=== PATIENT | male | born 1960 | race Caucasian/White ===

== ENCOUNTER → 2021-11-16 09:46 | Outpatient (BNVA) | payer OTHER, SELFPAY | PROVIDERS: PCP Family Medicine; Visit Provider Nurse Practitioner Family | DX: G45.9 Transient cerebral ischemic attack, unspecified (principal); J44.9 Chronic obstructive pulmonary disease, unspecified; R06.00 Dyspnea, unspecified | CPT/HCPCS: 71046; 80053; 80061; 83880; 84443; G0103 ==

== ENCOUNTER 2021-12-26 03:39 | Emergency (ER) | payer OTHER, SELFPAY ==
[2021-12-26] VITALS (17 sets, daily range): BP systolic 103–128; BP diastolic 48–85; PULSE 68–89; RESP 16–24; TEMP 36.9; O2SAT 92–96; BMI 38.4
--- NOTE | 2021-12-26 03:53 | ECG_ITS ---
[facility] Test Date: 2021-12-26 Pat Name: Patrick Branch Department: Room: Gender: Male Para Educator: : 1960 Requested By: Berto Manriquez Order Number: [id number] Gaurav MD: Margie Guallpa M.D. Measurements Intervals [place] Rate: 71 P: 74 AR: 186 QRS: 34 QRSD: 113 T: 48 QT: 410 QTc: 447 Interpretive Statements SINUS RHYTHM LOW QRS VOLTAGE IN PRECORDIAL LEADS [QRS DEFLECTION < 1.0 mV IN CHEST LEADS] MODERATE INTRAVENTRICULAR CONDUCTION DELAY [110+ ms QRS DURATION] No previous ECG available for comparison Electronically Signed On 12-26-2021 6:37:29 CDT by Margie Guallpa M.D. [id number]
--- NOTE | 2021-12-26 03:56 | CTR_ITS ---
PROCEDURE INFORMATION: Exam: CT Abdomen And Pelvis Without Contrast Exam date and time: 12/26/2021 4:14 AM Age: 61 years old Clinical indication: Abdominal pain; Generalized; Patient HX: C/O of diffuse abd pain. Visibly jaundiced. History of cirrhosis. TECHNIQUE: Imaging protocol: Computed tomography of the abdomen and pelvis without contrast. Radiation optimization: All CT scans at this facility use at least one of these dose optimization techniques: automated exposure control; mA and/or kV adjustment per patient size (includes targeted exams where dose is matched to clinical indication); or iterative reconstruction. COMPARISON: CR (CHEST, ) 12/26/2021 4:01 AM RADIATION DOSE METRICS: Total DLP (mGy-cm): 1149.63 FINDINGS: Tubes, catheters and devices: Left upper quadrant splenorenal shunt. Liver: Cirrhotic morphology of the liver. Gallbladder and bile ducts: Moderate distention of the gallbladder. No radiopaque stones are seen. No biliary dilation. Pancreas: Normal. No ductal dilation. Spleen: Normal. No splenomegaly. Adrenal glands: Normal. No mass. Kidneys and ureters: Normal. No hydronephrosis. Stomach and bowel: Unremarkable. No obstruction. No mucosal thickening. Appendix: No evidence of appendicitis. Intraperitoneal space: Small volume abdominopelvic ascites. Vasculature: Esophageal varices. Mild burden of atherosclerotic plaque in the abdominal aorta and branch vessels. No aneurysm. Lymph nodes: Unremarkable. No enlarged lymph nodes. Urinary bladder: Unremarkable as visualized. Reproductive: Unremarkable as visualized. Bones/joints: Remote right-sided rib fractures. Soft tissues: Anasarca. CT/CT abdomen pelvis [facility] [id number] IMPRESSION: Cirrhotic morphology of the liver with evidence of portal hypertension.
--- NOTE | 2021-12-26 03:56 | XRR_ITS ---
PROCEDURE INFORMATION: Exam: XR Chest Exam date and time: 12/26/2021 4:01 AM Age: 61 years old Clinical indication: Shortness of breath; Patient HX: C/O SOB with generalized weakness. History of copd. TECHNIQUE: Imaging protocol: Radiologic exam of the chest. Views: 1 view. COMPARISON: CR XR chest 2V* [id number] 11/16/2021 9:52 AM FINDINGS: Lungs: No focal airspace disease. Pleural spaces: Unremarkable. No pleural effusion. No pneumothorax. Heart/Mediastinum: Cardiomediastinal silhouette is within normal limits. Bones/joints: Unremarkable. XR/XR chest 1V portable [id number] IMPRESSION: No acute cardiopulmonary abnormality.
--- NOTE | 2021-12-26 04:12 | ED_ITS ---
Documented by User: Berto Manriquez MD 12/26/21 18:58 HPI - General Adult General: Chief complaint: General Medical Stated complaint: GEN WEAKNESS Time Seen by Provider: 12/26/21 03:43 Source: patient Mode of arrival: ambulatory Limitations: no limitations History of Present Illness: 61-year-old male who has a history of alcoholism along with cirrhosis. He states he has not really seen anyone in the last 10 months since he moved here from [place]. He states that has been having increasing swelling to his legs and shortness of breath and weakness. He states that over the last few days that he is not able to walk patient's pulse ox by EMS was 82% on room air he is requiring 2 L here patient is extremely jaundiced here he does have some slight back and abdominal pain as well. Associated symptoms: Reports dyspnea; Deny chest pain, headache(s), nausea, rash or vomiting Review of Systems Const: Denies: fever(s), chills, body aches or change in appetite Eyes: Reports: yellow eyes; Denies: blurry vision or eye discomfort ENMT: Denies: throat pain or dental pain Card: Denies: chest pain Resp: Reports: dyspnea GI: Reports: abdominal pain; Denies: nausea, vomiting or diarrhea : Denies: dysuria Musc: Reports: extremity swelling; Denies: neck pain or back pain Skin/Breast: Denies: rash Neuro: Denies: headache(s) Psych: Denies: depression Shen/Lymph: Denies: easy bruising All/Imm: Denies: urticaria PFSH ED PFSH: Medical History (Updated 01/03/22 @ 00:01 by ) Alcohol use Chronic back pain Cirrhosis COPD (chronic obstructive pulmonary disease) Hyperlipemia Hypertension Peripheral neuropathy Tobacco dependency Surgical History (Updated 12/26/21 @ 11:45 by Giuseppe Jackson MD) History of lung surgery Probable pleural effusion with decortication Family History (Updated 12/26/21 @ 11:45 by Giuseppe Jackson MD) Other CAD (coronary artery disease) Stroke Social History (Updated 12/26/21 @ 11:45 by Giuseppe Jackson MD) Smoking and tobacco status: current every day smoker Alcohol intake: current Physical Exam Const: COMMON NORMALS: patient oriented x3 GENERAL APPEARANCE: ill appearing HENMT: COMMON NORMALS: normocephalic and atraumatic HEAD & SCALP: normocephalic and atraumatic Eye: COMMON NORMALS: Equal, round and reactive pupils present and EOMs intact bilaterally SCLERA: scleral abnormal (icterus) PUPIL: Yes Equal, round and reactive pupils present Neck/C-Spine: COMMON NORMALS: full ROM and supple Chest: COMMONS NORMALS: normal inspection of the chest and normal palpation of entire chest wall Resp: COMMON NORMALS: No retractions and No use of accessory muscles AUSCULTATION: rales Cardio: COMMON NORMALS: regular rate, regular rhythm and No murmurs present (Cardio) RATE: regular rate RHYTHM: regular rhythm GI: COMMON NORMALS: Normal to inspection, nondistended, normoactive bowel sounds present, Soft to palpation, non-tender and no masses PALPATION: Yes Soft to palpation Extremity: COMMON NORMALS: full ROM NARRATIVE EXTREMITY EXAM: 2+ edema Neuro: COMMON NORMALS: patient oriented x3, moves all extremities and no focal motor deficits Psych: COMMON NORMALS: mental status grossly normal, Normal thought process present and cooperative THOUGHT PROCESS: Normal thought process present Skin: COMMON NORMALS: no wounds NARRATIVE SKIN EXAM: severely jaundiced Course Vital Signs: Vital signs: Vital Signs Temperature 98.5 F 12/26/21 03:50 Pulse Rate 72 12/26/21 15:04 Respiratory Rate 21 H 12/26/21 15:04 Blood Pressure 114/65 12/26/21 15:30 Pulse Oximetry 93 12/26/21 15:04 Oxygen Delivery Me thod 12/26/21 15:04 Oxygen Flow Rate 2 12/26/21 15:04 [facility] - General Adult Lab Data : 12/26/21 03:58 12/26/21 11:42 Radiology Impressions Abdomen/Pelvis CT 12/26/21 03:56 IMPRESSION: Cirrhotic morphology of the liver with evidence of portal hypertension. Chest X-Ray 12/26/21 03:56 IMPRESSION: No acute cardiopulmonary abnormality. Laboratory Results WBC 11.4 10^3/uL (4.0-10.0) H 12/26/21 03:58 RBC 2.75 10^6/uL (4.1-5.3) L 12/26/21 03:58 Hgb 11.5 g/dL (11.7-16.6) L 12/26/21 03:58 Hct 29.0 % (42.0-52.0) L 12/26/21 03:58 MCV 105.5 fl (80-94) H 12/26/21 03:58 MCH 41.8 pg (28.0-34.0) H 12/26/21 03:58 MCHC 39.7 g/dL (30.0-36.0) H 12/26/21 03:58 RDW 16.7 % (12.1-15.1) H 12/26/21 03:58 Plt Count 160 10^3/cmm (130-400) 12/26/21 03:58 MPV 9.6 fL (7.4-10.4) 12/26/21 03:58 Neut % (Auto) 83.6 % 12/26/21 03:58 Lymph % (Auto) 3.6 % 12/26/21 03:58 [place] % (Auto) 10.0 % 12/26/21 03:58 Eos % (Auto) 1.1 % 12/26/21 03:58 Baso % (Auto) 0.4 % 12/26/21 03:58 Neut # (Auto) 9.51 10^3/uL (1.8-7.7) H 12/26/21 03:58 Lymph # (Auto) 0.4 10^3/uL (0.8-4.8) L 12/26/21 03:58 [place] # (Auto) 1.1 10^3/uL (0.2-0.9) H 12/26/21 03:58 Eos # (Auto) 0.1 10^3/uL (0.0-0.8) 12/26/21 03:58 Baso # (Auto) 0.1 10^3/uL (0.0-0.1) 12/26/21 03:58 Nucleated RBC % (auto) 0.2 % 12/26/21 03:58 Nucleated RBCs # 0.0 /100WBC 12/26/21 03:58 PT 20.10 SECONDS (12.1-14.9) H 12/26/21 03:58 INR 1.68 (0.8-1.2) H 12/26/21 03:58 Sodium 107 mmol/L (136-145) L* 12/26/21 11:42 Potassium 4.1 mmol/L (3.5-5.1) 12/26/21 11:42 Chloride 72 mmol/L (98-107) L 12/26/21 11:42 Carbon Dioxide 27 mmol/L (22-29) 12/26/21 11:42 Anion Gap 12.1 (5-19) 12/26/21 11:42 BUN 26 mg/dL (8-23) H 12/26/21 11:42 Creatinine 0.4 mg/dL (0.7-1.2) L 12/26/21 11:42 GFR Calculation 218.0 mL/min (90-130) H 12/26/21 11:42 Glucose 91 mg/dL (65-115) 12/26/21 11:42 POC Glucose 93 mg/dL (70-110) 12/26/21 13:44 Calculated Osmolality 228 mOsm/kg (285-295) L 12/26/21 11:42 Lactate 3.1 mmol/L (0.5-2.2) H 12/26/21 03:58 Calcium 8.9 mg/dL (8.5-10.5) 12/26/21 11:42 Magnesium 1.3 mg/dL (1.7-2.3) L 12/26/21 03:58 Total Bilirubin 28.2 mg/dL (0.15-1.2) H* 12/26/21 03:58 AST 145 U/L (0-40) H 12/26/21 03:58 ALT 58 U/L (0-41) H 12/26/21 03:58 Alkaline Phosphatase 114 IU/L (40-130) 12/26/21 03:58 Ammonia 47 umol/L (16-60) 12/26/21 12:14 Troponin T Baseline 18 ng/L (0-15) H 12/26/21 03:58 Troponin T 120 Minute 18.76 ng/L (0-15) H 12/26/21 05:57 Delta Troponin T 0.76 ABS# (0-10) 12/26/21 05:57 NT-Pro-B Natriuret Pep 711 pg/mL (0-125) H 12/26/21 03:58 Total Protein 5.1 g/dL (6.6-8.7) L 12/26/21 03:58 Albumin 2.5 g/dL (3.5-5.2) L 12/26/21 03:58 Globulin 2.6 g/dL (1.3-4.6) 12/26/21 03:58 Lipase 67 U/L (13-60) H 12/26/21 03:58 Vitamin B12 > 2000 pg/mL (232-1245) H 12/26/21 11:42 Folate 2.7 ng/mL (4.5-32.2) L 12/26/21 11:42 TSH 0.86 uIU/mL (0.27-4.20) 12/26/21 11:42 Urine Color Brown (Yellow) 12/26/21 15:04 Urine Appearance Clear (CLEAR) 12/26/21 15:04 Urine pH 6 (5-7) 12/26/21 15:04 Ur Specific [place] 1.020 (1.005-1.030) 12/26/21 15:04 Urine Protein Neg (Negative) 12/26/21 15:04 Urine Glucose (UA) Norm (Normal) 12/26/21 15:04 Urine Ketones Negative (Negative) 12/26/21 15:04 Urine Blood Trace (Negative) H 12/26/21 15:04 Urine Nitrate Negative (Negative) 12/26/21 15:04 Urine Bilirubin 3+ (Negative) H 12/26/21 15:04 Urine Urobilinogen 4+ mg/dL (Negative) H 12/26/21 15:04 Ur Leukocyte Esterase Negative (Negative) 12/26/21 15:04 Urine RBC 0-4 /hpf (0-2) H 12/26/21 15:04 Urine WBC 5-10 /hpf (0-5) H 12/26/21 15:04 Ur Squamous Epith Cells 0-4 /hpf (0-5) H 12/26/21 15:04 Amorphous Sediment Not Reportable 12/26/21 15:04 Urine Bacteria 2+ /hpf (NONE) H 12/26/21 15:04 Salicylates < 0.3 mg/dL (3-10) L 12/26/21 03:58 Urine Opiates Screen Negative ng/mL (Negative) 12/26/21 15:04 Acetaminophen < 5.0 ug/mL (10-30) L 12/26/21 03:58 Ur Barbiturates Screen Negative ng/mL (Negative) 12/26/21 15:04 Ur Phencyclidine Scrn Negative ng/mL (Negative) 12/26/21 15:04 Ur Amphetamines Screen Negative ng/mL (Negative) 12/26/21 15:04 U Benzodiazepines Scrn Negative ng/mL (Negative) 12/26/21 15:04 Urine Cocaine Screen Negative ng/mL (Negative) 12/26/21 15:04 U Marijuana (THC) Screen Negative ng/mL (Negative) 12/26/21 15:04 Ethyl Alcohol < 10 mg/dL (0-10) 12/26/21 03:58 Hepatitis A IgM Ab Non-reactive (Nonreactive) 12/26/21 11:42 Hep Bs Antigen Non-reactive (Nonreactive) 12/26/21 11:42 Hep B Core IgM Ab Non-reactive (Nonreactive) 12/26/21 11:42 Hepatitis C Antibody Reactive (Nonreactive) H 12/26/21 11:42 HCV RNA (PCR) IUs/ml <1.18 not detected Log IU/mL (NOT DETECTED) 12/26/21 12:34 HCV RNA (PCR) IU log10 <15 not detected IU/mL (NOT DETECTED) 12/26/21 12:34 SARS-CoV-2 Ag (Rapid) Negative (Negative) 12/26/21 04:58 EKG Data EKG 1: I personally reviewed and interpreted this EKG as follows: EKG interpretation date: 12/26/21 EKG interpretation time: 03:53 Interpretation: nsr hr [address] or t wave abnormalities qrs 113 qtc 432 Computer generated interpretation: Abdomen/Pelvis CT 12/26/21 03:56 IMPRESSION: Cirrhotic morphology of the liver with evidence of portal hypertension. Chest X-Ray 12/26/21 03:56 IMPRESSION: No acute cardiopulmonary abnormality. Critical Care Time Critical Care Time: Critical Care Time: Yes Total Critical Care Time: 70 Attestation: The high probability of a clinically significant, sudden or life threatening deterioration of the patient's gi/hepatologic system(s) required my full and direct attention, intervention and personal management. The critical care time is as shown. This time is in addition to time spent performing any reported procedures but includes the following: [x] Data and vital sign review and interpretation [x] Patient assessment, examination and intervention [x] Documentation [x] Medication orders and management Discharge Plan Discharge Patient Disposition: Xfer Short-Term Hosp Clinical Impression: Alcoholic liver failure, Acute hyponatremia Condition: Stable Referrals: Heydi Smith MD [Primary Care Provider] - Sign Out Sign Out Data: Patient Sign Out occurred on 12/26/21 at 06:01. Patient's care was discussed, and care was transferred from to Ok Richardson MD. Coding Level of Care Code ED Physical Therapist Technician for Chg Fwd Exam Comprehensive Documented by User: Ok Richardson MD 01/07/22 22:47 HPI - General Adult General: Chief complaint: General Medical Stated complaint: GEN WEAKNESS Time Seen by Provider: 12/26/21 03:43 PFSH ED PFSH: Medical History (Updated 01/03/22 @ 00:01 by ) Alcohol use Chronic back pain Cirrhosis COPD (chronic obstructive pulmonary disease) Hyperlipemia Hypertension Peripheral neuropathy Tobacco dependency Surgical History (Updated 12/26/21 @ 11:45 by Giuseppe Jackson MD) History of lung surgery Probable pleural effusion with decortication Family History (Updated 12/26/21 @ 11:45 by Giuseppe Jackson MD) Other CAD (coronary artery disease) Stroke Social History (Updated 12/26/21 @ 11:45 by Giuseppe Jackson MD) Smoking and tobacco status: current every day smoker Alcohol intake: current Course Vital Signs: Vital signs: Vital Signs Temperature 98.5 F 12/26/21 03:50 Pulse Rate 72 12/26/21 15:04 Respiratory Rate 21 H 12/26/21 15:04 Blood Pressure 114/65 12/26/21 15:30 Pulse Oximetry 93 12/26/21 15:04 Oxygen Delivery Me thod 12/26/21 15:04 Oxygen Flow Rate 2 12/26/21 15:04 MDM - General Adult Medical Decision Making Patient care handoff received from Dr. Manriquez pending completion of ED evaluation and transfer. Laboratory studies reviewed. Imaging reviewed. No acute pathology requiring surgical intervention identified on CT abdomen pelvis. Patient requires hepatology specialist which is not available at our facility or at [facility] which is also not available. Very limited bed availability in that region. Patient tentatively accepted to [facility] in [place] by Dr. Du however subsequently received a call back saying they would not take him until sodium above 120. Hospitalist service consulted. Appreciate recommendations. Ok Richardson MD Emergency Medicine Lab Data : 12/26/21 03:58 12/26/21 11:42 Radiology Impressions Abdomen/Pelvis CT 12/26/21 03:56 IMPRESSION: Cirrhotic morphology of the liver with evidence of portal hypertension. Chest X-Ray 12/26/21 03:56 IMPRESSION: No acute cardiopulmonary abnormality. Laboratory Results WBC 11.4 10^3/uL (4.0-10.0) H 12/26/21 03:58 RBC 2.75 10^6/uL (4.1-5.3) L 12/26/21 03:58 Hgb 11.5 g/dL (11.7-16.6) L 12/26/21 03:58 Hct 29.0 % (42.0-52.0) L 12/26/21 03:58 MCV 105.5 fl (80-94) H 12/26/21 03:58 MCH 41.8 pg (28.0-34.0) H 12/26/21 03:58 MCHC 39.7 g/dL (30.0-36.0) H 12/26/21 03:58 RDW 16.7 % (12.1-15.1) H 12/26/21 03:58 Plt Count 160 10^3/cmm (130-400) 12/26/21 03:58 MPV 9.6 fL (7.4-10.4) 12/26/21 03:58 Neut % (Auto) 83.6 % 12/26/21 03:58 Lymph % (Auto) 3.6 % 12/26/21 03:58 [place] % (Auto) 10.0 % 12/26/21 03:58 Eos % (Auto) 1.1 % 12/26/21 03:58 Baso % (Auto) 0.4 % 12/26/21 03:58 Neut # (Auto) 9.51 10^3/uL (1.8-7.7) H 12/26/21 03:58 Lymph # (Auto) 0.4 10^3/uL (0.8-4.8) L 12/26/21 03:58 [place] # (Auto) 1.1 10^3/uL (0.2-0.9) H 12/26/21 03:58 Eos # (Auto) 0.1 10^3/uL (0.0-0.8) 12/26/21 03:58 Baso # (Auto) 0.1 10^3/uL (0.0-0.1) 12/26/21 03:58 Nucleated RBC % (auto) 0.2 % 12/26/21 03:58 Nucleated RBCs # 0.0 /100WBC 12/26/21 03:58 PT 20.10 SECONDS (12.1-14.9) H 12/26/21 03:58 INR 1.68 (0.8-1.2) H 12/26/21 03:58 Sodium 107 mmol/L (136-145) L* 12/26/21 11:42 Potassium 4.1 mmol/L (3.5-5.1) 12/26/21 11:42 Chloride 72 mmol/L (98-107) L 12/26/21 11:42 Carbon Dioxide 27 mmol/L (22-29) 12/26/21 11:42 Anion Gap 12.1 (5-19) 12/26/21 11:42 BUN 26 mg/dL (8-23) H 12/26/21 11:42 Creatinine 0.4 mg/dL (0.7-1.2) L 12/26/21 11:42 GFR Calculation 218.0 mL/min (90-130) H 12/26/21 11:42 Glucose 91 mg/dL (65-115) 12/26/21 11:42 POC Glucose 93 mg/dL (70-110) 12/26/21 13:44 Calculated Osmolality 228 mOsm/kg (285-295) L 12/26/21 11:42 Lactate 3.1 mmol/L (0.5-2.2) H 12/26/21 03:58 Calcium 8.9 mg/dL (8.5-10.5) 12/26/21 11:42 Magnesium 1.3 mg/dL (1.7-2.3) L 12/26/21 03:58 Total Bilirubin 28.2 mg/dL (0.15-1.2) H* 12/26/21 03:58 AST 145 U/L (0-40) H 12/26/21 03:58 ALT 58 U/L (0-41) H 12/26/21 03:58 Alkaline Phosphatase 114 IU/L (40-130) 12/26/21 03:58 Ammonia 47 umol/L (16-60) 12/26/21 12:14 Troponin T Baseline 18 ng/L (0-15) H 12/26/21 03:58 Troponin T 120 Minute 18.76 ng/L (0-15) H 12/26/21 05:57 Delta Troponin T 0.76 ABS# (0-10) 12/26/21 05:57 NT-Pro-B Natriuret Pep 711 pg/mL (0-125) H 12/26/21 03:58 Total Protein 5.1 g/dL (6.6-8.7) L 12/26/21 03:58 Albumin 2.5 g/dL (3.5-5.2) L 12/26/21 03:58 Globulin 2.6 g/dL (1.3-4.6) 12/26/21 03:58 Lipase 67 U/L (13-60) H 12/26/21 03:58 Vitamin B12 > 2000 pg/mL (232-1245) H 12/26/21 11:42 Folate 2.7 ng/mL (4.5-32.2) L 12/26/21 11:42 TSH 0.86 uIU/mL (0.27-4.20) 12/26/21 11:42 Urine Color Brown (Yellow) 12/26/21 15:04 Urine Appearance Clear (CLEAR) 12/26/21 15:04 Urine pH 6 (5-7) 12/26/21 15:04 Ur Specific [place] 1.020 (1.005-1.030) 12/26/21 15:04 Urine Protein Neg (Negative) 12/26/21 15:04 Urine Glucose (UA) Norm (Normal) 12/26/21 15:04 Urine Ketones Negative (Negative) 12/26/21 15:04 Urine Blood Trace (Negative) H 12/26/21 15:04 Urine Nitrate Negative (Negative) 12/26/21 15:04 Urine Bilirubin 3+ (Negative) H 12/26/21 15:04 Urine Urobilinogen 4+ mg/dL (Negative) H 12/26/21 15:04 Ur Leukocyte Esterase Negative (Negative) 12/26/21 15:04 Urine RBC 0-4 /hpf (0-2) H 12/26/21 15:04 Urine WBC 5-10 /hpf (0-5) H 12/26/21 15:04 Ur Squamous Epith Cells 0-4 /hpf (0-5) H 12/26/21 15:04 Amorphous Sediment Not Reportable 12/26/21 15:04 Urine Bacteria 2+ /hpf (NONE) H 12/26/21 15:04 Salicylates < 0.3 mg/dL (3-10) L 12/26/21 03:58 Urine Opiates Screen Negative ng/mL (Negative) 12/26/21 15:04 Acetaminophen < 5.0 ug/mL (10-30) L 12/26/21 03:58 Ur Barbiturates Screen Negative ng/mL (Negative) 12/26/21 15:04 Ur Phencyclidine Scrn Negative ng/mL (Negative) 12/26/21 15:04 Ur Amphetamines Screen Negative ng/mL (Negative) 12/26/21 15:04 U Benzodiazepines Scrn Negative ng/mL (Negative) 12/26/21 15:04 Urine Cocaine Screen Negative ng/mL (Negative) 12/26/21 15:04 U Marijuana (THC) Screen Negative ng/mL (Negative) 12/26/21 15:04 Ethyl Alcohol < 10 mg/dL (0-10) 12/26/21 03:58 Hepatitis A IgM Ab Non-reactive (Nonreactive) 12/26/21 11:42 Hep Bs Antigen Non-reactive (Nonreactive) 12/26/21 11:42 Hep B Core IgM Ab Non-reactive (Nonreactive) 12/26/21 11:42 Hepatitis C Antibody Reactive (Nonreactive) H 12/26/21 11:42 HCV RNA (PCR) IUs/ml <1.18 not detected Log IU/mL (NOT DETECTED) 12/26/21 12:34 HCV RNA (PCR) IU log10 <15 not detected IU/mL (NOT DETECTED) 12/26/21 12:34 SARS-CoV-2 Ag (Rapid) Negative (Negative) 12/26/21 04:58 EKG Data EKG 1: Computer generated interpretation: Abdomen/Pelvis CT 12/26/21 03:56 IMPRESSION: Cirrhotic morphology of the liver with evidence of portal hypertension. Chest X-Ray 12/26/21 03:56 IMPRESSION: No acute cardiopulmonary abnormality. Discharge Plan Discharge Patient Disposition: Xfer Short-Term Hosp Clinical Impression: Alcoholic liver failure, Acute hyponatremia Condition: Stable Referrals: Heydi Smith MD [Primary Care Provider] - Sign Out Sign Out Data: Patient Sign Out occurred on 12/26/21 at 06:01. Patient's care was discussed, and care was transferred from to Ok Richardson MD. Coding Level of Care Code ED Physical Therapist Technician for Chg Fwd Exam Comprehensive
[2021-12-26 04:30] LABS: INR 1.68 (0.8-1.2)
[2021-12-26 04:36] LABS: Troponin(5th) Baseline 18 ng/L (0-15)
[2021-12-26 04:39] LABS: Lactate (Lactic Acid level) 3.1 mmol/L (0.5-2.2)
[2021-12-26 04:50] LABS: Alanine Aminotransferase 58 U/L (0-41); Albumin Level 2.5 g/dL (3.5-5.2); Alkaline Phosphatase 114 IU/L (40-130); Anion Gap 16.5 (5-19); Aspartate Amino Transferase 145 U/L (0-40); Blood Urea Nitrogen 21 mg/dL (8-23); Calcium 8.9 mg/dL (8.5-10.5); Carbon Dioxide 25 mmol/L (22-29); Chloride 71 mmol/L (98-107); Globulin 2.6 g/dL (1.3-4.6); Glomerular Filtration Rate 136.5 mL/min (90-130); Glucose 83 mg/dL (65-115); Lipase 67 U/L (13-60); Magnesium 1.3 mg/dL (1.7-2.3); NT Pro B Type Natriuretic Pept 711 pg/mL (0-125); Osmolality Calculated 228 mOsm/kg (285-295); Potassium 4.5 mmol/L (3.5-5.1); Total Protein 5.1 g/dL (6.6-8.7)
[2021-12-26 04:54] LABS: Alcohol Level < 10 mg/dL (0-10)
[2021-12-26 04:55] LABS: Sodium 108 mmol/L (136-145); Total Bilirubin 28.2 mg/dL (0.15-1.2)
[2021-12-26 05:31] LABS: SARS Covid-2 Antigen Negative (Negative)
[2021-12-26 05:35] LABS: Basophils # 0.1 10^3/uL (0.0-0.1); Basophils % 0.4 %; Eosinophils # 0.1 10^3/uL (0.0-0.8); Eosinophils % 1.1 %; Hemoglobin 11.5 g/dL (11.7-16.6); Lymphocytes # 0.4 10^3/uL (0.8-4.8); Lymphocytes % 3.6 %; Mean Corpuscular HGB Conc 39.7 g/dL (30.0-36.0); Mean Corpuscular Hemoglobin 41.8 pg (28.0-34.0); Mean Corpuscular Volume 105.5 fl (80-94); Mean Platelet Volume 9.6 fL (7.4-10.4); Monocytes # 1.1 10^3/uL (0.2-0.9); Neutrophils # 9.51 10^3/uL (1.8-7.7); Neutrophils % 83.6 %; Nucleated Red Blood Cells % 0.2 %; Platelet Count 160 10^3/cmm (130-400); Red Blood Count 2.75 10^6/uL (4.1-5.3); Red Cell Distribution Width 16.7 % (12.1-15.1); White Blood Count 11.4 10^3/uL (4.0-10.0)
[2021-12-26 05:43] LABS: Slide Review Slide Review Perform
--- NOTE | 2021-12-26 06:01 | ECG_ITS ---
[facility] Test Date: 2021-12-26 Pat Name: Patrick Branch Department: Room: Gender: Male Table Filler: : 1960 Requested By: Berto Manriquez Order Number: [id number] Gaurav MD: Rebecca Madsen M.D. Measurements Intervals [place] Rate: 73 P: 69 MA: 202 QRS: 38 QRSD: 114 T: 46 QT: 410 QTc: 454 Interpretive Statements SINUS RHYTHM POSSIBLE LEFT ATRIAL ENLARGEMENT [-0.1mV P WAVE IN V1/V2] MODERATE INTRAVENTRICULAR CONDUCTION DELAY [110+ ms QRS DURATION] Compared to ECG 12/26/2021 03:53:59 No significant changes Electronically Signed On 12-26-2021 19:49:10 CDT by Rebecca Madsen M.D. [id number]
[2021-12-26] MEDS: magnesium sulfate premix 2 GM/50 ML PIGGYBACK IV (06:25)
[2021-12-26 06:51] LABS: Troponin 5 2HR 18.76 ng/L (0-15)
[2021-12-26] MEDS: sodium chloride 0.9% 500 ML 999 ML IV (06:55)
[2021-12-26 07:00] LABS: Troponin 5 2HR Delta 0.76 ABS# (0-10)
--- NOTE | 2021-12-26 08:30 | PC.NURSE ---
This RN assisted patient to chair at bedside. Pt ambulatory with standby assistance
--- NOTE | 2021-12-26 09:17 | PC.NURSE ---
This RN moved patient into a hospital bed for comfort and given water, no other needs at this time.
--- NOTE | 2021-12-26 09:56 | ECG_ITS ---
[facility] Test Date: 2021-12-26 Pat Name: Patrick Branch Department: Room: Gender: Male Cable Coverer: : 1960 Requested By: Berto Manriquez Order Number: [id number] Gaurav MD: Rebecca Madsen M.D. Measurements Intervals [place] Rate: 67 P: 52 [place]: 162 QRS: 18 QRSD: 116 T: 30 QT: 430 QTc: 457 Interpretive Statements SINUS RHYTHM POSSIBLE LEFT ATRIAL ENLARGEMENT [-0.1mV P-WAVE IN V1/V2] MODERATE INTRAVENTRICULAR CONDUCTION DELAY [110+ ms QRS DURATION] Compared to ECG 12/26/2021 06:01:42 No significant changes Electronically Signed On 12-26-2021 19:48:30 CDT by Rebecca Madsen M.D. [id number]
--- NOTE | 2021-12-26 11:41 | PM.CONSULT ---
Providers/Reason For Consult Consulting Physician/Specialty*: Giuseppe Jackson MD, Hospitalist Reason for Consult*: Cirrhosis, hyponatremia Requesting Physician: Dr. Richardson Primary Care Provider: Heydi Smith MD History of Present Illness History of Present Illness Patrick Branch is a 61 year old male who presents to the emergency department with complaints of weakness. He reports significant swelling over the last 5 weeks as well, increasing despite oral medications. He reports nobody is really noticed his jaundice, until he came into the ER. He has been nauseated at times but feels okay right now. He admits to having occasional confusion. He has had some abdominal discomfort. He does not believe he has had any fevers at home. Occasionally short of breath. No blood in stool or black or tarry stools. Denies any hematemesis. Reports he was told he had liver disease several years ago at [facility] [place]. In the emergency department he has received a magnesium infusion, and a bolus of normal saline. Review of Systems General: Reports: 10 or more systems reviewed and unremarkable except in HPI and below Const: Reports: fatigue; Denies: fever(s) or chills Eyes: Denies: change in vision ENMT: Denies: throat pain Card: Reports: edema and swelling of feet/ankles; Denies: chest pain Resp: Reports: dyspnea GI: Reports: abdominal pain; Denies: nausea, vomiting, hematochezia or melena : Denies: flank pain Musc: Reports: back pain; Denies: neck pain Skin/Breast: Denies: rash Neuro: Denies: headache(s) Psych: Denies: anxiety or depression Shen/Lymph: Denies: easy bruising All/Imm: Denies: urticaria Medications/Allergies Home Medications Medication Instructions Recorded Confirmed Last Taken Type albuterol sulfate 90 mcg/actuation 2 inh inhalation Q6H PRN Shortness 08/14/21 12/26/21 Unknown History breath activated powder inhaler Of Breath amlodipine 10 mg tablet 10 mg PO DAILY 08/14/21 12/26/21 Unknown History aspirin 81 mg tablet,delayed 81 mg PO DAILY 08/14/21 12/26/21 Unknown History release atorvastatin 80 mg tablet 80 mg PO DAILY 08/14/21 12/26/21 Unknown History benzonatate 100 mg capsule 100 mg PO TID PRN Cough 08/14/21 12/26/21 Unknown History cetirizine 10 mg tablet (All Day 10 mg PO DAILY PRN Allergy Symptoms 08/14/21 12/26/21 Unknown History Allergy (cetirizine)) fluticasone propionate 50 2 spray intranasal DAILY PRN 08/14/21 12/26/21 Unknown History mcg/actuation nasal Allergy Symptoms spray,suspension furosemide 20 mg tablet 20 mg PO DAILY 08/14/21 12/26/21 Unknown History gabapentin 400 mg capsule 400 mg PO BEDTIME 08/14/21 12/26/21 Unknown History lisinopril 20 mg tablet 20 mg PO DAILY 08/14/21 12/26/21 Unknown History methocarbamol 750 mg tablet 750 mg PO Q6H PRN Muscle Pain 08/14/21 12/26/21 Unknown History mometasone 100 mcg/actuation HFA 2 puff inhalation BID 08/14/21 12/26/21 Unknown History aerosol inhaler spironolactone 50 mg tablet 50 mg PO DAILY SHORTNESS OF BREATH 08/14/21 12/26/21 Unknown History pramoxine-zinc acetate 1 %-0.1 % 1 applic topical QID PRN skin 09/20/21 12/26/21 Unknown Rx lotion (Caladryl Clear) irritation #177 mL propranolol 40 mg tablet 40 mg PO BID #60 tabs 11/02/21 12/26/21 Unknown Rx Allergies Allergy/AdvReac Type Severity Reaction Status Date / Time No Known Allergies Allergy Verified 12/26/21 09:27 PFSH Acute PFSH: Medical History (Updated 12/26/21 @ 11:45 by Giuseppe Jackson MD) Alcohol use Chronic back pain Cirrhosis COPD (chronic obstructive pulmonary disease) Hyperlipemia Hypertension Peripheral neuropathy Tobacco dependency Surgical History (Updated 12/26/21 @ 11:45 by Giuseppe Jackson MD) History of lung surgery Probable pleural effusion with decortication Family History (Updated 12/26/21 @ 11:45 by Giuseppe Jackson MD) Other CAD (coronary artery disease) Stroke Social History (Updated 12/26/21 @ 11:45 by Giuseppe Jackson MD) Smoking and tobacco status: current every day smoker Alcohol intake: current Substance/Drug Use: never Vitals/I&O/Wt Last Vital Signs Temp 98.5 F 12/26/21 03:50 Pulse 70 08/03/22 11:08 Resp 24 H 12/26/21 11:08 BP 108/56 12/26/21 11:08 Pulse Ox 95 12/26/21 11:08 O2 Del Method 12/26/21 11:08 O2 Flow Rate 2 12/26/21 11:08 12/25/21 12/26/21 12/26/21 22:59 06:59 14:59 Intake Total 500 / 500 Balance 500 / 500 Weight last 48 hrs Weight 121.563 kg Physical Exam Narrative: General exam demonstrates a conversant white male, in no distress, slightly slow in response but alert and oriented x3. No asterixis is present. He is obviously jaundiced, and icteric. HEENT: Atraumatic and normocephalic. Pupils equally round. Icterus noted. Oropharynx clear. Neck is supple no lymphadenopathy or thyromegaly Cardiovascular regular rate and rhythm without murmur, no S3 or S4 Lungs clear no wheezing or crackles Abdomen slight tenderness more on the left side. Protuberant. Positive bowel sounds. exam is deferred Extremities show 2+ edema bilaterally, pitting. Refill is brisk. No cyanosis or clubbing Skin demonstrates jaundice Neuro no obvious focal deficits Data : 12/26/21 03:58 12/26/21 03:58 Other Labs: Magnesium level 1.3, for which she is already received supplementation INR 1.68 Bilirubin 28 AST 145, ALT 58, alk phos 114 Troponin 18 with repeat of 18 Albumin 2.5 Lipase 67 Chest x-ray no infiltrate CT abdomen pelvis this is cirrhosis, portal hypertension, esophageal varices, atherosclerotic disease, small amount of ascites EKG demonstrates sinus rhythm, normal axis, left atrial enlargement, intraventricular conduction delay Lactate 3.1 A&P Assessment and plan (1) Alcoholic liver failure: Appears to have significant liver failure. INR is elevated. Bilirubin is markedly high. Had pre-existing diagnosis of cirrhosis, thought to be secondary to alcohol use of which he is still imbibing. Check hepatitis panel The emergency department has ordered a drug screen, acetaminophen level He may have some element of alcoholic encephalopathy as he has slight psychomotor slowing although no asterixis is present. If significantly elevated consider lactulose. Monitor glucose carefully with as needed Accu-Chek, otherwise serial BMPs are going to be done for his hyponatremia. Thiamine IV Thiamine p.o., multivitamin with folate should be initiated tomorrow As etiology of acute liver failure and worsening could be secondary to peritonitis and the patient has a small amount of abdominal pain will obtain cultures, initiate Rocephin. The amount of ascites on the CT scan is not amenable to paracentesis. Hold beta-blockers Initiate albumin If renal failure develops consider octreotide, midodrine Status: Acute (2) Acute hyponatremia: Presented with hyponatremia, with clear evidence of fluid overload. He had been given normal saline in the emergency department. There is no evidence of hypotension or renal dysfunction. Repeat BMP stat. Consideration of initiation of diuresis with Lasix after this returns. If decreased further/not improved , or significant symptoms consider hypertonic saline Status: Acute Consult Attestations Medical Necessity Statement: Hypomagnesemia. Supplement. Bated MCV. Likely secondary to liver disease. Check TSH, B12, folate Medical problems as outlined in past medical history Appropriate for transfer to tertiary care center with GI/hepatology specialties Thank you for this consultation Critical Care Time: The high probability of a clinically significant, sudden or life threatening deterioration of the patient's [, electrolyte, hepatic] system(s) required my full and direct attention, intervention and personal management. The critical care time is as shown. This time is in addition to time spent performing any reported procedures but includes the following: [x] Data and vital sign review and interpretation [x] Patient assessment, examination and intervention [x] Documentation [x] Medication orders and management Critical Care Time (min): 52 Coding Level of Care Code Acute [employer] for [place] [employer] Diagnoses Alcoholic liver failure K70.40 Acute hyponatremia E87.1
[2021-12-26] MEDS: cefTRIAXone 1,000 MG in sodium chloride 0.9% (plus) 50 ML 100 MG IV (11:58)
[2021-12-26 12:17] LABS: Acetaminophen < 5.0 ug/mL (10-30); Salicylate < 0.3 mg/dL (3-10)
[2021-12-26 12:22] LABS: Anion Gap 12.1 (5-19); Blood Urea Nitrogen 26 mg/dL (8-23); Calcium 8.9 mg/dL (8.5-10.5); Carbon Dioxide 27 mmol/L (22-29); Chloride 72 mmol/L (98-107); Glucose 91 mg/dL (65-115); Osmolality Calculated 228 mOsm/kg (285-295); Potassium 4.1 mmol/L (3.5-5.1); Thyroid Stimulating Hormone 0.86 uIU/mL (0.27-4.20)
[2021-12-26 12:24] LABS: Sodium 107 mmol/L (136-145)
[2021-12-26 12:29] LABS: Folate Level 2.7 ng/mL (4.5-32.2)
[2021-12-26 12:33] LABS: Hepatitis A Antibody IgM Non-Reactive (Nonreactive); Hepatitis B Core IgM Non-Reactive (Nonreactive); Hepatitis B Surface Antigen Non-Reactive (Nonreactive); Hepatitis C Virus Antibody Reactive (Nonreactive)
[2021-12-26 13:32] LABS: Ammonia 47 umol/L (16-60)
[2021-12-26] MEDS: FUROsemide 10 mg/mL SDV 4mL 40 MG IVP (13:46)
[2021-12-26 13:49] LABS: Glucose Point of Care 93 mg/dL (70-110)
--- NOTE | 2021-12-26 14:08 | PC.NURSE ---
Called report to DIANA Rondon at [facility]
[2021-12-26 14:22] LABS: Vitamin B12 > 2000 pg/mL (232-1245)
[2021-12-26 15:32] LABS: Urine Appearance Clear (CLEAR); Urine Color Brown (Yellow); pH Urine 6 (5-7)
[2021-12-26 15:33] LABS: Protein Urine Neg (Negative)
[2021-12-26 15:40] LABS: Amphetamines Screen Urine Negative (Negative); Barbiturates Screen Urine Negative (Negative); Benzodiazepines Screen Urine Negative (Negative); Cocaine Screen Urine Negative (Negative); Opiate Screen Urine Negative (Negative); PCP Screen Urine Negative (Negative); THC Screen Urine Negative (Negative)
[2021-12-26 15:48] LABS: Add Urine Culture? Yes; Bacteria Urine 2+ /hpf; Bilirubin Urine 3+ (Negative); Blood Urine Trace (Negative); Glucose Urine UA Norm (Normal); Ketones Urine Negative (Negative); Leukocyte Esterase Urine Negative (Negative); Nitrate Urine Negative (Negative); RBC Urine 0-4 /hpf (0-2); Squamous Epithelial Cell Urine 0-4 /hpf (0-5); Urobilinogen Urine 4+ mg/dL (Negative)
[2021-12-28 19:04] LABS: HEP C RNA Viral Load Quant <1.18 NOT DETECTED Log IU/mL (NOT DETECTED); HEP C RNA Viral Load Quant <15 NOT DETECTED IU/mL (NOT DETECTED)
== END 2021-12-26 15:55 | disposition short-term general hospital (02) ==
PROVIDERS: Emergency Medicine; Internal Medicine; Emergency Provider Emergency Medicine; PCP Family Medicine
DX: E87.1 Hypo-osmolality and hyponatremia (principal); K70.40 Alcoholic hepatic failure without coma; J44.9 Chronic obstructive pulmonary disease, unspecified; E78.5 Hyperlipidemia, unspecified; I10 Essential (primary) hypertension; F17.210 Nicotine dependence, cigarettes, uncomplicated; Z20.822 Contact with and (suspected) exposure to COVID-19
CPT/HCPCS: 36415; 36416; 71045; 74176; 80048; 80053; 80074; 80306; 80307; 81001; 82140; 82607; 82746; 82962; 83605; 83690; 83735; 83880; 84443; 84484; 85025; 85610; 87040; 87086; 87426; 87522; 93005; 96365; 96366; 96367; 96375; 99291; J0696; J1940; J3411; J3475; J7040; J7131; P9047